=== PATIENT | female | born 2000 | race Caucasian/White ===

== ENCOUNTER 2021-01-13 20:30 | Emergency (ER) | payer BC, OTHER, SELFPAY ==
--- NOTE | ~2021-01-13 | CT_ITS ---
EXAMINATION: CT abdomen pelvis wo con DATE: 01/13/2021 21:54 INDICATION: Right flank pain and hematuria TECHNIQUE: Computed tomography (CT) of the abdomen and pelvis was performed without intravenous contr ast. Automated exposure control and iterative reconstruction technique were employed. The dose-length product was 192.83 mGy-cm. COMPARISON: None FINDINGS: Lung bases are clear. Heart size is normal. No pericardial or pleural effusion. Liver, gallbladder, s pleen, pancreas and bilateral adrenal glands are normal. Kidneys are normal with no evident nephrolit hiasis or hydronephrosis. There are several calcifications in the pelvis which appear remote from the expected course of ureters which are difficult to distinguish due to the paucity of intra-abdominal fat which most likely represent phleboliths. Bladder anteverted uterus are normal. Bowels including t he appendix are normal. No free intraperitoneal gas or fluid. No pathologically enlarged abdominal or pelvic lymphadenopathy. Bones are unremarkable. IMPRESSION: 1. A few small calcifications in the pelvis which given location are more likely to represent phlebol iths than ureteral stones although the ureters are not able to be definitively localized in the pelvi s. No nephrolithiasis or hydronephrosis. Reviewed, dictated and finalized at location A. IMPRESSION: 1. A few small calcifications in the pelvis which given location are more likel y to represent phleboliths than ureteral stones although the ureters are not ab le to be definitively localized in the pelvis. No nephrolithiasis or hydronephr osis.
[2021-01-13 20:50] VITALS: BP 127/70; PULSE 87; RESP 20; TEMP 36.7
--- NOTE | 2021-01-13 21:09 | ED.GENADULT ---
HPI - General Adult General Chief complaint: Urogenital-Female Stated complaint: R side pain Source: patient Mode of arrival: ambulatory Limitations: no limitations History of Present Illness HPI narrative: Cm is a 20F with a PMH of back surgery that presented to the ED with right flank pain. She has had flank pain off and on for the last week. It comes and goes but it can be quite excruciating. It is better with ibuprofen and sitting but worse with standing. No dysuria, hematuria, nausea, vomiting, fevers, chills or trauma to the area. Related Data Allergies Allergy/AdvReac Type Severity Reaction Status Date / Time No Known Allergies Allergy Verified 11/06/20 10:43 Review of Systems Constitutional: Constitutional: Reports no additional constitutional complaints, Denies chills, Denies fatigue and Denies fever(s) Eyes: Eyes: Reports no additional eye complaints ENT: Reports system reviewed and no additional complaints, except as documented Cardiovascular: Cardiovascular: Reports no additional cardiovascular complaints Respiratory: Respiratory: Reports no additional respiratory complaints Gastrointestinal: Gastrointestinal: Reports no additional gastrointestinal complaints Genitourinary: Genitourinary: Reports as per HPI Musculoskeletal: Musculoskeletal: Reports as per HPI Integumentary/Breasts: Skin/Breast: Reports system reviewed and no additional complaints, except as docu Neurologic: Reports system reviewed and no additional complaints, except as documented Psychiatric: Psychiatric: Reports no additional psychiatric complaints Endocrine: Endocrine: Reports no additional endocrine complaints Hematologic/Lymphatic: Hematologic/Lymphatic: Reports no additional hematologic/lymphatic complaints Allergic/Immunologic: Allergic/Immunologic: Reports no additional allergic/immunologic complaints [facility] Past Medical History Medical History Allergies Anemia Anxiety Migraines Surgical History Surgical History History of back surgery [place] teeth extracted Family History Family History Father Diabetes mellitus Depression Hypertension Social History Social History Smoking status: Never smoker Alcohol intake: current Substance use: never Exam Const: General: no acute distress Orientation/consciousness: patient oriented x3 HENMT: Head: normal to inspection Other: atraumatic Eyes: Conjunctivae: conjunctivae normal Pupils: Equal, round and reactive pupils present Neck: Neck: normal visual inspection Chest: Chest palpation & inspection: normal inspection of the chest Resp: Effort & Inspection: normal respiratory effort Cardio: Rate: regular rate GI: Inspection: non-distended GI Palp: Yes Soft to palpation, No Tenderness to palpation present (GI), No Guarding due to palpation present (GI) and No Rigid due to palpation : General: Yes no CVA tenderness Skin: General skin exam: normal color Rashes: no rashes Neuro: General: patient oriented x3 and moves all extremities Extrem: General: normal to inspection Psych: Appearance: grossly normal Mental Status: mental status grossly normal Thought content: Yes Normal thought content present Course Course Emergency Course: EXAMINATION: CT abdomen pelvis wo con DATE: 01/13/2021 21:54 INDICATION: Right flank pain and hematuria TECHNIQUE: Computed tomography (CT) of the abdomen and pelvis was performed without intravenous contrast. Automated exposure control and iterative reconstruction technique were employed. The dose-length product was 192.83 mGy-cm. COMPARISON: None FINDINGS: Lung bases are clear. Heart size is normal. No pericardial or pleural effusion. Liver, gallbladder, spleen, pancreas and bilatera
[2021-01-13 21:16] LABS: Appearance Urine Clear (Clear); Bilirubin Urine Negative (Negative); Blood Urine 2+ (Negative); Glucose Urine UA Negative (Negative); Ketones Urine Negative (Negative); Leukocyte Esterase Ur Negative (Negative); Nitrate Urine Negative (Negative); Protein Urine Negative (Negative); Specific Grav Ur 1.015 (1.010-1.020); Urobilinogen Urine 0.2 mg/dL (0.2-1.0); pH Urine 6.5 (5.0-8.0)
[2021-01-13 21:26] LABS: Add Urine Microscopic? YES; Color Urine Light Yellow (Yellow); RBC Urine 21-50 /hpf (0-2); WBC Urine 0-3 /hpf (0-3)
[2021-01-13 21:27] LABS: Bacteria Urine Trace /hpf; Pregnancy On Board Control Positive; Urine Pregnancy Test Negative
[2021-01-13 22:40] VITALS: BP 124/72; PULSE 79; RESP 20; TEMP 36.7; O2SAT 97
== END 2021-01-13 23:00 | disposition home or self-care (01) ==
PROVIDERS: Emergency Provider Family Medicine
DX: R10.9 Unspecified abdominal pain (principal)
CPT/HCPCS: 74176; 81001; 81025; 99282; 99284

== ENCOUNTER 2021-10-10 13:42 | Emergency (ER) | payer BC, OTHER, SELFPAY ==
--- NOTE | ~2021-10-10 | CT_ITS ---
EXAMINATION: CT abdomen pelvis w con DATE: 10/10/2021 15:16 INDICATION: Right lateral abdominal pain, intermittent. TECHNIQUE: Computed tomography (CT) of the abdomen and pelvis was performed with 100 cc Omnipaque 350 intravenous contrast. The dose-length product was 342.47 mGy-cm. Automated exposure control and iter ative reconstruction technique were employed. COMPARISON: CT dated 01/13/2021 FINDINGS: Lung bases unremarkable. Heart size normal. No significant pleural or pericardial effusion. The liver, spleen, pancreas, adrenal glands and kidneys are unremarkable. Gallbladder is present. No significant vascular abnormality. No lymphadenopathy. Bladder is unremarkable. No free air or free f luid. No acute osseous abnormality. IMPRESSION: 1. No acute abdominal abnormality. Reviewed, dictated and finalized at location A. [facility]
--- NOTE | ~2021-10-10 | XR_ITS ---
EXAMINATION: XR chest 1V 10/10/2021 15:17 INDICATION: Upper abdominal and chest pain PROCEDURE: PA upright chest COMPARISON: No prior studies for comparison. FINDINGS: The lungs are clear. The cardiomediastinal silhouette is within normal limits. There are no pleural effusions. There is no pneumothorax suspected. IMPRESSION: 1: NO ACUTE CARDIOPULMONARY DISEASE. Reviewed, dictated and finalized at location A. IFIED PEDIATRIC NURSE PRACTITIONER
[2021-10-10 13:44] VITALS: BP 118/76; PULSE 80; RESP 16; TEMP 36.1; O2SAT 100
[2021-10-10] MEDS: SODIUM CHLORIDE 0.9% IV 1,000 ML 999 ML IV CONT (14:31)
[2021-10-10 14:40] LABS: Basophils Absolute Auto 0.1 K/mm3 (0.0-0.1); Basophils Percent Auto 0.9 % (0.2-1.2); Eosinophils Absolute Auto 0.2 K/mm3 (0-0.3); Eosinophils Percent Auto 2.7 % (0-4.4); Hematocrit 40.6 % (37.0-47.0); Hemoglobin 13.8 g/dL (12.0-15.0); Immature Granulocyte Absolute 0.01 K/mm3 (0.00-0.031); Immature Granulocyte Percent A 0.1 % (0-0.5); Lymphocytes Absolute Auto 2.59 K/mm3 (0.9-3.2); Lymphocytes Percent Auto 34.6 % (18.3-44.2); Mean Corpuscular Volume 94.2 fl (80-100); Mean Platelet Volume 9.4 fl (7.4-10.4); Monocytes Absolute Auto 0.7 K/mm3 (0.1-0.6); Monocytes Percent Auto 8.8 % (2.6-8.5); Neutrophils Percent Auto 52.9 % (45.5-73.1); Platelet Count Result 311 k/mm3 (150-375); Red Blood Count 4.31 M/mm3 (4.2-5.4); Red Cell Distribution Width 11.8 % (11.5-14.5); White Blood Count 7.5 K/mm3 (4.5-10.0)
[2021-10-10 14:49] LABS: Alanine Aminotransferase 15 U/L (4-35); Albumin Level 4.4 g/dL (3.5-5.1); Alkaline Phosphatase 50 U/L (38-126); Anion Gap 6 mmol/L (8-16); Aspartate Amino Transferase 35 U/L (14-36); Bilirubin,Total 0.4 mg/dL (0.2-1.3); Blood Urea Nitrogen 20 mg/dL (7-17); Calcium 9.3 mg/dL (8.4-10.2); Carbon Dioxide 30 mmol/L (22-30); Chloride 105 mmol/L (98-107); Estimated CRCL calculation 64 ml/min; Estimated Glomerular Filt Rate > 60; Glucose 102 mg/dL (65-110); Lipase 108 U/L (23-300); Potassium 3.9 mmol/L (3.4-5.0); Sodium 141 mmol/L (137-145)
[2021-10-10 14:59] LABS: Add Urine Microscopic? YES; Appearance Urine Cloudy (Clear); Bilirubin Urine Negative (Negative); Blood Urine 2+ (Negative); Color Urine Yellow (Yellow); Glucose Urine UA Negative (Negative); Ketones Urine Negative (Negative); Leukocyte Esterase Ur Trace LEU/UL (Negative); Nitrate Urine Negative (Negative); Protein Urine Negative (Negative); RBC Urine >75 /hpf (0-2); Specific Grav Ur 1.025 (1.001-1.035); Squamous Epithelial Cell Urine Rare /hpf (Few); Urobilinogen Urine Negative mg/dL (<2.0); WBC Urine 0-3 /hpf
--- NOTE | 2021-10-10 15:04 | ED.ABDPAIN ---
HPI - Abdominal Pain General Chief Complaint: Abdominal Pain Stated Complaint: right side pain Time Seen by Provider: 10/10/21 13:52 Source: patient Mode of arrival: ambulatory Limitations: no limitations History of Present Illness HPI narrative: Patient is 21 years old white female presents with intermittent sharp stabbing pain at the right upper quadrant right lower ribs for 1 week. Worse with standing and walking, better laying down still. Patient denies any fever, chills, nausea, vomiting, urinary symptoms, vaginal bleeding or discharge. Patient works as a tmd teacher, right-handed. Patient denies smoking or using drugs, drinks occasionally. Patient does not take medicine at home, healthy otherwise. Related Data Allergies Allergy/AdvReac Type Severity Reaction Status Date / Time No Known Allergies Allergy Verified 11/06/20 10:43 Review of Systems Review of Systems: CONSTITUTIONAL: Denies fever, chills, or sweats. EYES: Denies visual changes, redness, or discharge. ENT: Denies rhinorrhea, congestion, sore throat, or otalgia. CARDIOVASCULAR: Denies chest pain, palpitations, or edema. RESPIRATORY: Denies cough or dyspnea. GASTROINTESTINAL: Denies abdominal pain, nausea, vomiting, or diarrhea. GENITOURINARY: Denies dysuria or hematuria. SKIN: Denies rash or itching. MUSCULOSKELETAL: Denies back pain, joint pain, or myalgia. NEUROLOGIC: Denies headache, numbness, or weakness. PSYCHIATRIC: Denies anxiety or depression. [facility] Past Medical History Medical History Allergies Anemia Anxiety Migraines Surgical History Surgical History History of back surgery [place] teeth extracted Family History Family History Father Diabetes mellitus Depression Hypertension Social History Social History Smoking status: Never smoker Alcohol intake: current Substance use: never Exam Narrative: General appearance: Well-developed, well-nourished Skin: Normal color Head: Normocephalic, nontraumatic Eyes: Clear conjunctiva ENT: Oropharynx normal, ears normal, nose normal Neck: Supple, nontender Chest and respiratory: Airway patent, no respiratory distress, no accessory muscle use Heart: Regular rate/rhythm Abdomen: Soft, nontender, no organomegaly, quiet bowel sounds Vascular: Normal peripheral pulses, normal capillary refill. Musculoskeletal: Normal range of motion, nontender back Neurologic: Alert and oriented ?3, FELTING MACHINE OPERATOR is normal as tested, no gross motor deficit Course Course Emergency Course: Stable Patient presents with intermittent pain at the right upper quadrant right lower ribs worse with movement, better laying still. Patient works as a tmd teacher, right-handed, muscular strain/sprain could be a possibility. Work-up today showed no findings to explain patient presentation. Tylenol, ibuprofen as needed recommended Vital Signs Vital signs: Vital Signs Temperature 36.1 C L 10/10/21 13:44 Pulse Rate 80 10/10/21 13:44 Respiratory Rate 16 10/10/21 13:44 Blood Pressure 118/76 10/10/21 13:44 Pulse Oximetry 100 10/10/21 13:44 Temperature 36.1 C L 10/10/21 13:44 Pulse Rate 80 10/10/21 13:44 Respiratory Rate 16 10/10/21 13:44 Blood Pressure 118/76 10/10/21 13:44 Pulse Oximetry 100 10/10/21 13:44 MDM - Abdominal Pain Lab Data Result diagrams: 10/10/21 14:31 10/10/21 14:31 Labs: Lab Results 10/10/21 10/10/21 10/10/21 Range/Units 14:29 14:31 14:31 WBC 7.5 (4.5-1
[2021-10-10 15:44] VITALS: BP 128/66; PULSE 74; RESP 16; O2SAT 99
--- NOTE | 2021-10-15 08:34 | PC.NURSE ---
LATE ENTRY This note is being entered to document information to the patient's record. The following information was omitted on [10/10/21], by [Shalini REILLY Stop time for NS was 1530, 10ooml infused].
== END 2021-10-10 16:00 | disposition home or self-care (01) ==
PROVIDERS: Emergency Provider Emergency Medicine
DX: R10.11 Right upper quadrant pain (principal); Z86.2 Personal history of diseases of the blood and blood-forming organs and certain disorders involving the immune mechanism
CPT/HCPCS: 36415; 71045; 74177; 80053; 81001; 81025; 83690; 85025; 96360; 99284; J7030; Q9967

== ENCOUNTER 2021-12-30 14:05 | Outpatient (CLI) | payer BC, OTHER, SELFPAY ==
[2021-12-30 15:20] LABS: HIV 1/2 Ab P24 Ag Result Negative (Negative)
[2021-12-30 18:03] LABS: Hepatitis B Surface Antigen Negative (Negative)
[2021-12-30 18:20] LABS: Hepatitis C Virus Antibody Negative (Negative)
[2021-12-31 06:39] LABS: Rapid Plasma Reagin Non-Reactive (NonReactive)
== END 2021-12-30 14:06 | disposition home or self-care (01) ==
PROVIDERS: Visit Provider Obstetrics & Gynecology
DX: Z20.2 Contact with and (suspected) exposure to infections with a predominantly sexual mode of transmission (principal)
CPT/HCPCS: 36415; 86592; 86703; 86803; 87340; G0432

== ENCOUNTER 2024-11-10 08:04 | Emergency (ER) | payer BC, SELFPAY ==
--- NOTE | ~2024-11-10 | XR_ITS ---
XR hand RT min 3V Ordering provider: Felicita Casper NP History: . hit hand on wooden box at gym pain swelling attn: RT index . Comparison: None. FINDINGS: BONES: No acute fracture or dislocation. JOINT SPACES: Normal. SOFT TISSUES: Normal. IMPRESSION: No acute osseous abnormality right hand. Reviewed, dictated and finalized at location A.
--- OUTSIDE RECORDS SUMMARY | 2024-11-10 08:06 | XMS_ITS | Referral Summary ---
Author Organization [facility] Address [address] [place] [address] Care Team Providers Care Sheet Metal Duct Installer Helper Name Role Phone No, Physician Primary Care Provider [phone] Allergies No known active allergies Medications fexofenadine (ULISES) 60 mg tablet Take 1 tablet (60 mg total) by mouth daily Active fluticasone propionate (FLONASE) 50 mcg/actuation nasal spray Administer 1 spray into each nostril daily Active benzonatate (TESSALON) 200 mg capsuleIndicati ons:Nasopharyng itis acute Take 1 capsule (200 mg total) by mouth 3 (three) times a day as needed for cough 30 capsule 3 Active Additional Information Patient not taking.Reported on 07/07/2023 phentermine (ADIPEX-P) 37.5 mg tablet TAKE 1 TABLET 30 MINUTES BEFORE FIRST MEAL ORALLY ONCE A DAY 30 DAYS 3 Active Active Problems Problem Noted Date Diagnosed Date Allergic rhinitis 06/22/2020 Assessment & Plan (06/22/2020 4:50 PM PUBLIC POLICY PROFESSOR): Will monitor throat, Avoid tonsillectomy until absolutely necessary Continue warm salt water gargles or mouthwash gargles to prevent tonsil stone from reforming Will obtain allergy testing from [place] Continue Ulises Continue the increased fluid intake Arthralgia of ankle 08/02/2011 Patellofemoral pain syndrome 04/12/2011 Stress fracture 11/30/2010 Lumbago 10/19/2010 Social History Tobacco Use Types Packs/Day Years Used Date Smoking Tobacco: Never Smokeless Tobacco: Never Alcohol Use Standard Drinks/Week Comments Not Currently 0 (1 standard drink = 0.6 oz pur e alcohol) Personal Safety Answer Date Recorded Getting School Help Needed Not on file 10/06 Comments Unknown Sex and Gender Information Value Date Recorded Sex Assigned at Not on file Legal Sex Female 3:31 AM PUBLIC POLICY PROFESSOR Gender Identity Female 11/06/2023 9:59 AM CDT Sexual Orientation Not on file Last Filed Vital Signs Vital Sign Reading Time Taken Comments Blood Pressure 122/80 11/05/2023 2:01 PM CDT Pulse 72 11/05/2023 2:01 PM CDT Temperature 36.9 C (98.5 F) 11/05/2023 2:01 PM CDT Respiratory Rate 20 11/05/2023 2:01 PM CDT Oxygen Saturation 100% 11/05/2023 2:01 PM CDT Inhaled Oxygen Concentration - - Weight 68.5 kg (151 lb) 11/05/2023 2:01 PM CDT Height 160 cm (5' 3 ) 11/05/2023 2:01 PM CDT Body Mass Index 26.75 11/05/2023 2:01 PM CDT Plan of Treatment Not on file Insurance IDPA [employer] ACCESS CHOICE IDPA IDPA Care Teams Sheet Metal Duct Installer Helper Relationship Specialty Start Date End Date No, Physician PCP - General 06/22/20
--- OUTSIDE RECORDS SUMMARY | 2024-11-10 08:06 | XMS_ITS | Clinical Summary ---
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): Will monitor throat, Avoid tonsillectomy until absolutely necessary Continue warm salt water gargles or mouthwash gargles to prevent tonsil stone from reforming Will obtain allergy testing from [place] Continue Ulises Continue the increased fluid intake [...] on file Legal Sex Female 3:31 AM DYE REEL OPERATOR Gender Identity Female 11/06/2023 9:59 AM CDT Sexual Orientation Not on file Obstetrics History Last Filed Vital Signs Vital Sign Reading [...] 11/05/2023 2:01 PM CDT Plan of Treatment Health Maintenance Due Date Last Done Comments Cervical Cancer Screening 1998 Depression Screening 1998 Hepatitis C Screening 1998 DTaP/Tdap/Td Vaccine (1 - Tdap) 2009 Varicella Vaccines (1 of 2 - 13+ 2-dose series) 2011 HPV Vaccines (1 - 3-dose series) 2013 Hepatitis B Screening 2016 Regular Well Visit/Exam 18-64 2016 Influenza Vaccine (Season Ended) 2025 08/25/2022, 06/10/2020, 05/28/2019, Additional history exists Pneumococcal vaccine <65 Aged Out No longer eligible based on patient's age to complete this topic Insurance IDPA [employer] (Formerly [employer]) CHOICE IDPA IDPA Care Teams Application Software Developer Relationship Specialty Start Date End Date No, Physician PCP - General 06/22/20
--- OUTSIDE RECORDS SUMMARY | 2024-11-10 08:06 | XMS_ITS | Patient Health Record ---
Author Organization [facility] Address [address] [place] [address] [address] [place] [address] Care Team Providers Care Puppet Maker Name Role Phone Kelly Hand Primary Care Provider Pearl Huggins Unavailable [phone] Yusef Roland Unavailable [phone] Meghan Paniagua Unavailable [phone] Erin Chao Unavailable [phone] Allergies No Known Allergies Results Component Value Reference Range Notes *Vitamin D, 25-Hydroxy (0819 [id number]) Reviewed date:05/22/2024 12:59:26 PM Interpretation:Normal Performing Lab:[facility] [place], [address] [place] [id number], Phone - [phone], Director - Joycelyn Notes/Report: Clinical Information:SRC:Blood Vitamin D, 25-Hydroxy 48.9 30.0-100.0 ng/mL Vitamin D deficiency has been defined by the [place] of Medicine and an Endocrine Society practice guideline as a level of serum 25-OH vitamin D less than 20 ng/mL (1,2). The Endocrine Society went on to further define vitamin D insufficiency as a level between 21 and 29 ng/mL (2). 1. IOM ([place] of Medicine). 2010. Dietary reference intakes for calcium and D. [place]: The National Academies Press. 2. Chinyere MF, Barbie NC, Bob CLEMENTS, et al. Evaluation, treatment, and prevention of vitamin D deficiency: an Endocrine Society clinical practice guideline. JCEM. 2010; 96(7):1911-30. *CBC With Differential/Plate let ([id number]) Reviewed date:03/14/2024 05:28:37 PM Interpretation: Performing Lab:[facility] [address] [id number], Phone - [phone], [facility]/Report: WBC 6.6 3.4-10.8 x10E3/uL RBC 4.57 3.77-5.28 x10E6/uL Hemoglobin 14.4 11.1-15.9 g/dL Hematocrit 43.6 34.0-46.6 % MCV 95 79-97 fL MCH 31.5 26.6-33.0 pg MCHC 33.0 31.5-35.7 g/dL RDW 11.6 11.7-15.4 % Platelets 298 150-450 x10E3/uL Neutrophils 62 Not Estab. % Lymphs 27 Not Estab. % Monocytes 7 Not Estab. % Eos 3 Not Estab. % Basos 1 Not Estab. % Neutrophils (Absolute) 4.2 1.4-7.0 x10E3/uL Lymphs (Absolute) 1.8 0.7-3.1 x10E3/uL Monocytes(Absolute) 0.5 0.1-0.9 x10E3/uL Eos (Absolute) 0.2 0.0-0.4 x10E3/uL Baso (Absolute) 0.0 0.0-0.2 x10E3/uL Immature Granulocytes 0 Not Estab. % Immature Grans (Abs) 0.0 0.0-0.1 x10E3/uL *Comp. Metabolic Panel (14) ([id number]) Reviewed date:03/14/2024 05:28:37 PM Interpretation: Performing Lab:[facility] [address] [id number], Phone - [phone], [facility]Report: Glucose 82 70-99 mg/dL BUN 14 6-20 mg/dL Creatinine 0.89 0.57-1.00 mg/dL eGFR 92 >59 mL/min/1.73 BUN/Creatinine Ratio 16 9-23 Sodium 139 134-144 mmol/L Potassium 4.5 3.5-5.2 mmol/L Chloride 100 96-106 mmol/L Carbon Dioxide, Total 26 20-29 mmol/L Calcium 9.7 8.7-10.2 mg/dL Protein, Total 6.8 6.0-8.5 g/dL Albumin 4.2 4.0-5.0 g/dL Globulin, Total 2.6 1.5-4.5 g/dL Bilirubin, Total 0.3 0.0-1.2 mg/dL Alkaline Phosphatase 47 44-121 IU/L AST (SGOT) 23 0-40 IU/L ALT (SGPT) 12 0-32 IU/L [facility] ([id number]) Reviewed date:06/12/2024 02:58:12 PM Interpretation:Normal Performing Lab: Notes/Report: Glucose 85 70-99 mg/dL Hemoglobin A1c 5.1 4.8-5.6 % BUN 13 6-20 mg/dL Creatinine 0.93 0.57-1.00 mg/dL eGFR 87 >59 mL/min/1.73 BUN/Creatinine Ratio 14 9-23 Sodium 138 134-144 mmol/L Potassium 4.5 3.5-5.2 mmol/L Chloride 102 96-106 mmol/L Carbon Dioxide, Total 24 20-29 mmol/L Calcium 9.8 8.7-10.2 mg/dL Protein, Total 7.2 6.0-8.5 g/dL Albumin 4.5 4.0-5.0 g/dL Globulin, Total 2.7 1.5-4.5 g/dL Bilirubin, Total 0.7 0.0-1.2 mg/dL Alkaline Phosphatase 50 44-121 IU/L AST (SGOT) 19 0-40 IU/L ALT (SGPT) 13 0-32 IU/L Cholesterol, Total 182 100-199 mg/dL Triglycerides 37 0-149 mg/dL HDL Cholesterol 76 >39 mg/dL VLDL Cholesterol Kamar 8 5-40 mg/dL LDL Chol Calc ([facility]) 98 0-99 mg/dL T. Chol/HDL Ratio 2.4 0.0-4.4 ratio Estimated CHD Risk < 0.5 0.0-1.0 times avg. TSH 1.750 0.450-4.500 uIU/mL WBC 5.3 3.4-10.8 x10E3/uL RBC 4.53 3.77-5.28 x10E6/uL Hemoglobin 14.2 11.1-15.9 g/dL Hematocrit 44.3 34.0-46.6 % MCV 98 79-97 fL MCH 31.3 26.6-33.0 pg MCHC 32.1 31.5-35.7 g/dL RDW 11.9 11.7-15.4 % Platelets 284 150-450 x10E3/uL Neutrophils 53 Not Estab. % Lymphs 33 Not Estab. % Monocytes 8 Not Estab. % Eos 5 Not Estab. % Basos 1 Not Estab. % Neutrophils (Absolute) 2.8 1.4-7.0 x10E3/uL Lymphs (Absolute) 1.8 0.7-3.1 x10E3/uL Monocytes(Absolute) 0.5 0.1-0.9 x10E3/uL Eos (Absolute) 0.3 0.0-0.4 x10E3/uL Baso (Absolute) 0.1 0.0-0.2 x10E3/uL Immature Granulocytes 0 Not Estab. % Immature Grans (Abs) 0.0 0.0-0.1 x10E3/uL Reason For Referral Reason counseling Diagnosis 1 Anxiety (F41.9) Referral Organization [facility] Referring Provider First Name Kelly Referring Provider Last Name Yazan Referring Provider Speciality [facility] gloria Referred Provider Specialty Behavioral [facility] General Notes Erin Chao 024 02:02:34 PM >EVENT PRODUCER called and left a message, Erin Chao 05/15/2024 09:49:17 AM >EVENT PRODUCER spoke with pt and scheduled appt Referral Priority Routine Medications Medication SIG (Take, Route, Frequency, Duration) Notes Start Date End Date Status Fluticasone Propionate 50 MCG/ACT 1 spray in each nostril Nasally Once a day 05/03/2022 Active Montelukast Sodium 10 mg 1 tablet by aga th every evening. Active Hydrocortisone 2.5 % 1 application Externally 3 times a day and decrease as heals for 14 days 04/25/2024 Active Methylphenidate HCl ER (OSM) 36 MG 1 tablet in the morning Orally Once a day for 30 days 10/31/2024 11/30/2024 Active FLUoxetine HCl 10 MG 1 capsule Orally On ce a day for 30 days 05/15/2024 Active Fexofenadine HCl 180 MG 1 tablet Orally Once a day 01/22/2024 Active Immunizations Vaccine Route Administration Date Status Comme nts Influenza, Quadrivalent, Pres Free (Flucelvax) IM Intramuscular 08/25/2022 Administered Social History Tobacco Use: Social History Observation Description Date Details (start date - stop date) Never Smoker NA - NA Tobacco Use/Smoking Status: Question Answer Notes Are you a nonsmoker Tobacco Control Question Answer Notes Tobacco use: Nonsmoker Problems Problem Type SNOMED Code ICD Code Onset Dates Problem Status W/U Status Risk Notes Problem 63218138 Anxiety (F41.9) Active confirmed Problem 03842252 Stress (F43.9) Active confirmed Problem 51609512 Non-seasonal allergic rhinitis due to pollen (J30.1) Active confirmed Problem 056909489 Attention deficit disorder (ADD) in adult (F98.8) Active confirmed Problem 018869519 Seasonal depression (F33.8) Active confirmed Vital Signs Heart Rate 70 /min 09/12/2024 Temperature 97.2 degrees Fahrenheit 09/12/2024 Respiratory Rate 16 /min 09/12/2024 Height-cm 161.29 cm 09/12/2024 Oximetry 98 % 09/12/2024 Blood pressure diastolic 73 mm Hg 09/12/2024 Weight-kg 72.48 kg 09/12/2024 Height 63.5 in 09/12/2024 Blood pressure systolic 111 mm Hg 09/12/2024 Weight 159.8 lbs 09/12/2024 BMI 27.86 kg/m2 09/12/2024 Encounters Encounter Location Date Provider Diagnosis Joan Becerra [address] [address] 05/15/2024 Kelly Clicktreepreier Encounter for screening Z13.9 Joan Becerra [address] [facility] [address] [place] [address] 01/22/2024 Kelly Clicktreenmeier Physical exam Z00.00 ; Attention deficit disorder (ADD) in adult F98.8 ; Need for malaria prophylaxis Z29.89 ; Seasonal depression F33.8 and Non-seasonal allergic rhinitis due to pollen J30.1 Joan Becerra [address] [facility] [address] [place] [address] 03/13/2024 Kelly Clicktreenmeier Attention deficit disorder (ADD) in adult F98.8 ; Anxiety F41.9 ; Overweight (BMI 25.0-29.9) E66.3 ; Medication monitoring encounter Z51.81 and Non-seasonal allergic rhinitis due to pollen J30.1 Joan Becerra [address] [facility] [address] [place] [address] 04/25/2024 Kelly Mergenmeier Attention deficit disorder (ADD) in adult F98.8 ; Tinea pedis, left B35.3 ; Stress F43.9 and Anxiety F41.9 Joan Becerra [address] [facility] [place] [address] 05/15/2024 Kelly Mergenmeier Attention deficit disorder (ADD) in adult F98.8 and Labile mood R45.86 [address] [place] [address] 05/23/2024 Chao Attention deficit disorder (ADD) in adult F98.8 [place] [address] [place], [place] [address] [place] [address] [place] [address] 06/03/2024 Chao Anxiety F41.9 Joan Becerra [address] [facility] [address] [place] [address] 06/13/2024 Kelly Mergenmeier Attention deficit disorder (ADD) in adult F98.8 and Anxiety F41.9 [place] [address] [place], [place] [address] [place] [address] [place] [address] 06/18/2024 Chao Anxiety F41.9 [place] [address] [place] [address] 07/02/2024 Chao Anxiety F41.9 [place] [address] [place] [address] 07/23/2024 Chao Anxiety F41.9 [place] [address] [place] [address] 08/06/2024 Chao Stress F43.9 [place] [address] [place] [address] 09/03/2024 Chao Anxiety F41.9 Joan Becerra [address] [address] 09/12/2024 Kelly Mergenmeier Attention deficit disorder (ADD) in adult F98.8 ; Non-seasonal allergic rhinitis due to pollen J30.1 and Stress F43.9 [place] [address] [place] [address] 09/18/2024 Chao Anxiety F41.9 [place] [address] [place] [address] 10/02/2024 Chao Stress F43.9 [place] [address] [place] [address] 10/16/2024 Chao Anxiety F41.9 [place] [address] [place] [address] 11/05/2024 Chao Anxiety F41.9 [facility] [address] [place] [address] 03/13/2024 Kelly Mergenmeier [facility] [address] [address] 04/15/2024 Kelly Mergenmeier [facility] [address] [address] 04/17/2024 Kelly Mergenmeier Attention deficit disorder (ADD) in adult F98.8 [facility] [address] [address] [place] [address] 05/07/2024 Kelly Mergenmeier [facility] [address] [address] 07/17/2024 Kelly Mergenmeier Attention deficit disorder (ADD) in adult F98.8 [facility] [address] [place] [address] [place] [address] 08/09/2024 Meghan Holden Anxiety F41.9 [facility] [address] [place] [address] [place] [address] 08/27/2024 Meghan Holden Attention deficit disorder (ADD) in adult F98.8 [place] [address] [place] [address] [place] [address] 08/27/2024 Meghanluis alfredo Diope Attention deficit disorder (ADD) in adult F98.8 [place] [address] [address] [place] [address] 08/27/2024 Kelly Mergenmeier Joan Becerra [address] [place] [address] [place] [address] 08/30/2024 Kelly Mergenmeier Attention deficit disorder (ADD) in adult F98.[address] [place] [address] [place] [address] 08/30/2024 Yusef Roland Attention deficit disorder (ADD) in adult F98.8 [place] [address] [address] [place] [address] 09/05/2024 Meghan Holden Anxiety F41.9 Joan Becerra [address] [place] [address] [place] [address] 09/30/2024 Kelly Mergenmeier Attention deficit disorder (ADD) in adult F98.8 [facility] [address] [place] [address] [place] [address] 10/11/2024 Meghan Holden Anxiety F41.9 [facility] [address] [place] [address] [place] [address] 10/29/2024 Pearl Huggins Attention deficit disorder (ADD) in adult F98.8 Assessments Encounter Date Diagnosis (ICD Code) Assessment Notes Treatment Notes Treatment Clinical Notes Section Notes 05/15/2024 Encounter for screening (ICD-10 - Z13.9) 01/22/2024 Physical exam (ICD-10 - Z00.00) 01/22/2024 Attention deficit disorder (ADD) in adult (ICD-10 - F98.8) 03/13/2024 Anxiety (ICD-10 - F41.9) Pt is continuing with therapist. 03/13/2024 Attention deficit disorder (ADD) in adult (ICD-10 - F98.8) 04/25/2024 Attention deficit disorder (ADD) in adult (ICD-10 - F98.8) Well controlled on medication. 04/25/2024 Tinea pedis, left (ICD-10 - B35.3) Add OTC antifungal daily. 05/15/2024 Attention deficit disorder (ADD) in adult (ICD-10 - F98.8) Will keep at same dose for now and see how affected by SSRI. 05/15/2024 Labile mood (ICD-10 - R45.86) Discussed SSRI extensively. Counseled on use and goals as well as ways to engage fiance to help make changes and avoid binge eating. Encouraged to do 4 minute workout daily. 05/23/2024 Attention deficit disorder (ADD) in adult (ICD-10 - F98.8) 06/03/2024 Anxiety (ICD-10 - F41.9) 06/13/2024 Anxiety (ICD-10 - F41.9) Will update address once she moves and will send through [facility] 06/13/2024 Attention deficit disorder (ADD) in adult (ICD-10 - F98.8) 06/18/2024 Anxiety (ICD-10 - F41.9) 07/02/2024 Anxiety (ICD-10 - F41.9) 07/23/2024 Anxiety (ICD-10 - F41.9) 08/06/2024 Stress (ICD-10 - F43.9) 09/03/2024 Anxiety (ICD-10 - F41.9) 09/12/2024 Non-seasonal allergic rhinitis due to pollen (ICD-10 - J30.1) 09/12/2024 Attention deficit disorder (ADD) in adult (ICD-10 - F98.8) 09/18/2024 Anxiety (ICD-10 - F41.9) 10/02/2024 Stress (ICD-10 - F43.9) 10/16/2024 Anxiety (ICD-10 - F41.9) 11/05/2024 Anxiety (ICD-10 - F41.9) 04/17/2024 Attention deficit disorder (ADD) in adult (ICD-10 - F98.8) 07/17/2024 Attention deficit disorder (ADD) in adult (ICD-10 - F98.8) 08/09/2024 Anxiety (ICD-10 - F41.9) 08/27/2024 Attention deficit disorder (ADD) in adult (ICD-10 - F98.8) 08/27/2024 Attention deficit disorder (ADD) in adult (ICD-10 - F98.8) 08/30/2024 Attention deficit disorder (ADD) in adult (ICD-10 - F98.8) 08/30/2024 Attention deficit disorder (ADD) in adult (ICD-10 - F98.8) 09/05/2024 Anxiety (ICD-10 - F41.9) 09/30/2024 Attention deficit disorder (ADD) in adult (ICD-10 - F98.8) 10/11/2024 Anxiety (ICD-10 - F41.9) 10/29/2024 Attention deficit disorder (ADD) in adult (ICD-10 - F98.8) 03/13/2024 Overweight (BMI 25.0-29.9) (ICD-10 - E66.3) Has goals of weight loss over the next year for her wedding. 04/25/2024 Stress (ICD-10 - F43.9) Mostly having positive stressors but discussed that happy changes are also stressful. Pt has benefited from life coaching/counse mariah. Will refer to [facility] counselor and requires minimal intensity. Discussed that [facility] also has resources to utilize for navigating upcoming changes. 09/12/2024 Stress (ICD-10 - F43.9) 03/13/2024 Medication monitoring encounter (ICD-10 - Z51.81) 04/25/2024 Anxiety (ICD-10 - F41.9) 01/22/2024 Need for malaria prophylaxis (ICD-10 - Z29.89) 03/13/2024 Non-seasonal allergic rhinitis due to pollen (ICD-10 - J30.1) 01/22/2024 Seasonal depression (ICD-10 - F33.8) 01/22/2024 Non-seasonal allergic rhinitis due to pollen (ICD-10 - J30.1) Plan Of Treatment Pending Test Test Name Order Date PHA ([id number]) 05/03/2022 PHA ([id number]) 05/19/2023 Next Appt Details Provider Name:Elyssa Martinez 11/19/2024 08:00:00 AM, [address], [place], [address], Insurance Providers Payer Name Payer Address Payer Phone Subscriber Number Group Number Insured Name Patient Relationship to Insured Coverage Start Date Coverage End Date [facility] ([facility]) [address] [place] [address] [phone] [id number] Cm Ospina Self - patient is the insured 4 [facility] [address] [place] [address] [id number] Cm Ospina Self - patient is the insured 2 4 [facility] Cm Ospina Self - patient is the insured 2 4 [facility] ([facility]) [address] [place] [address] [id number] Cm Ospina Self - patient is the insured 2 2 Medical (General) History Medical History History ICD Code Allergies Anemia Anxiety Depression Surgical History Surgery Date(Month/Year) [facility] Teeth Surgery 2019 Back Surgery 2017
--- OUTSIDE RECORDS SUMMARY | 2024-11-10 08:06 | XMS_ITS ---
Author Organization [facility] Address [address] [facility] [address] [place] [address] Care Team Providers Care Turbo Generator Oiler Name Role Phone Kelly Hand Primary Care Provider Pearl Huggins Unavailable [phone] Erin Chao Unavailable [phone] REASON FOR VISIT f/u Encounters Encounter Location Date Provider Diagnosis [address] [place], [place] [address] [place] [address] 10/17/2024 Erin Chao Plan Of Treatment Next Appt Details Provider Name:Erin Chao, 0 11/19/2024 08:00:00 AM, [address], [place], [address], Progress Notes * Cm GARZA RDOB:[birth year] (24 yo F)Acc No.[id number]:10/17/2024 Mental Health - Follow-Up (V ideo) Patient: Cm VIVEROS Provider: Radha Chao :2000 A ge:24 Y S ex:Female Date:10/17/2024 External Visit ID:[id number] Address:[address] [place], [place] [id number] Pcp:Kelly Hand Subjective: * Chief Complaints: * 1 . F/u. * Active Problem List J30.1 Non-seasonal allergi c rhinitis due to pollen Modified On:05/03/2022W/U Status:confirmed F41.9 Anxiety Modified On:12/29/2022W/U Status:confirmed F33.8 Seasonal depression Modified On:10/02/2023/U Status:confirmed F98.8 Attention deficit di sorder (ADD) in adult Modified On:10/31/2023/U Status:confirmed F43.9 Stress Modified On:04/25/2024/U Status:confirmed * Medical History: Objective: Assessment: Plan: * Treatment: * Care Plan Details* * Electronic signature of Erin Chao LCSW on 11/10/2024 at 08:06 AM CDT Sign off status: Pending * Provider: Radha Chao Date: 0 10/17/2024 Generated for Dewayne obrien/Earl/Esau on: 0 11/10/2024 08:06 AM CDT
--- OUTSIDE RECORDS SUMMARY | 2024-11-10 08:06 | XMS_ITS | Clinical Summary ---
Author Organization [facility] Address [address] [facility], [place] [address] Phone Care Team Providers Care Privacy Analyst Name Role Phone Yazan Nolan Radha DPM Unavailable [phone] Maurice Hancock MD Primary Care Provider [phone] Allergies No known active allergies Medications LO LOESTRIN FE 1 MG-10 MCG / 10 MCG Tablet TK 1 T PO D 7 8 Active dicyclomine (BENTYL) 20 MG Tablet 8 Active famotidine (PEPCID) 40 MG Tablet TK 1 T PO QD 0 8 Active ondansetron (ZOFRAN-ODT) 4 MG TABLET DISPERSIBLE TK 1 T PO Q 8 HOURS PRF NAUSEA OR VOMITING 0 8 Active CARAFATE 1 GM/10ML Suspension TK 10ML PO BID BEFORE MEALS 0 8 Active omeprazole (PRILOSEC) 20 MG CAPSULE DELAYED RELEASE Take 1 Cap by mouth daily. 90 Cap 3 8 Active hyoscyamine (LEVSIN SL) 0.125 MG SL Tablet 1 Tab by Sublingual route every 4 hours as needed for Cramping. 60 Tab 1 8 Active Family History Medical History Relation Name Comments No Known Problems Father PUD No Known Problems Mother Relation Name Status Comments Father Alive Mother Alive Social History Tobacco Use Types Packs/Day Years Used Date Smoking Tobacco: Never Smokeless Tobacco: Never Alcohol Use Standard Drinks/Week Comments No 0 (1 standard drink = 0.6 oz pur e alcohol) Comments No Sex and Gender Information Value Date Recorded Sex Assigned at Not on file Legal Sex Female 10:08 PM CDT Gender Identity Not on file Sexual Orientation Not on file Occupation Industry Job Start Date Job End Date student Not on file Not on file Not on file Last Filed Vital Signs Vital Sign Reading Time Taken Comments Blood Pressure 116/68 01/25/2018 7:56 AM CDT Pulse 56 01/25/2018 7:56 AM CDT Temperature 37 C (98.6 F) 01/25/2018 7:56 AM CDT Respiratory Rate 20 01/25/2018 7:56 AM CDT Oxygen Saturation 98% 01/25/2018 7:56 AM CDT Inhaled Oxygen Concentration - - Weight 60.4 kg (133 lb 3.2 oz) 01/25/2018 7:56 A M CDT Height 161.3 cm (5' 3.5 ) 01/25/2018 7:56 AM CDT Body Mass Index 23.23 01/25/2018 7:56 AM CDT Plan of Treatment Health Maintenance Due Date Last Done Comments Hepatitis C Virus (HCV) Screening 2000 TdaP Immunization 2000 Human Papillomavirus (HPV) Immunization (1 - 3-dose series) 2013 Hepatitis B Immunization (1 of 3 - 19+ 3-dose series) 2017 Influenza Immunization (#1) 2024 SARS-COV-2 Immunization ( season) 2024 10/31/2020, 10/04/2020 Respiratory Syncytial Virus (RSV) Immunization (Adult) (1 - 1-dose 75+ series) 2073 Meningococcal Immunization (ACWY) Aged Out No longer eligible b ased on patient's age to complete this topic Pneumococcal Immunization Combined Aged Out No longer eligible b ased on patient's age to complete this topic Rotavirus Immunization Aged Out No lo nger eligible based on patient's age to complete this topic Insurance MEDICAID AETNA [facility] Care Teams Privacy Analyst Relationship Specialty Start Date End Date Maurice Hancock MD [address] [place] [address] PCP - General Family Medicine 01/11/18 Yazan Nolan DPM Consulting Physician Podiatry 12/08/15
--- OUTSIDE RECORDS SUMMARY | 2024-11-10 08:06 | XMS_ITS | Clinical Summary ---
Author Organization [facility] Address Counts include 234 beds at the [facility] [place] [address] Care Team Providers Care Food Preparer Name Role Phone Unavailable Primary Care Provider Unavailabl e Social History Tobacco Use Types Packs/Day Years Used Date Smoking Tobacco: Never Assessed Comments Unknown Sex and Gender Information Value Date Recorded Sex Assigned at Not on file Legal Sex Female 5:51 PM UNIT MANAGER Gender Identity Not on file Sexual Orientation Not on file Plan of Treatment Health Maintenance Due Date Last Done Comments Cervical Cancer Screening Pa p Smear (Age 21 to 29) Every 3 Years 2000 Cervical Cancer Screening 1998 Annual Physical 2001 HPV Vaccines (1 - 3-dose series) 2013 Hepatitis C 2016 DTaP, Tdap and Td Vaccines ( 1 - Tdap) 2017 Hepatitis B Vaccines (1 of 3 - 19+ 3-dose series) 2017 COVID-19 Vaccine (2023-2 5 season) 2024 Meningococcal B Vaccine Aged Out No l onger eligible based on patient's age to complete this topic Meningococcal Vaccine Aged Out No cyndee jefry eligible based on patient's age to complete this topic Pneumococcal Vaccine: Pediat rics (0 to 5 Years) and At-Risk Patients (6 to 64 Years) Aged Out No longer eligible b ased on patient's age to complete this topic RSV Immunizations Under 20 Months Aged Out No longer eligible based on patient's age to complete this topic
--- OUTSIDE RECORDS SUMMARY | 2024-11-10 08:07 | XMS_ITS ---
Author Organization [facility] Address [address] [place] [address] Care Team Providers Care Eligibility Services Representative Name Role Phone Kelly Hand Primary Care Provider Pearl Huggins [phone] Medications Medication SIG (Take, Route, Frequency, Duration) Notes Start Date End Date Status Methylphenidate HCl ER (OSM) 36 MG 1 tablet in the morning Orally Once a day for 30 days 10/31/2024 11/30/2024 Active Encounters Encounter Location Date Provider Diagnosis [facility] [address] [place] [address] 10/29/2024 Pearl Huggins Attention deficit disorder (ADD) in adult F98.8 Assessments Encounter Date Diagnosis (ICD Code) Assessment Notes Treatment Notes Treatment Clinical Notes Section Notes 10/29/2024 Attention deficit disorder (ADD) in adult (ICD-10 - F98.8) Plan Of Treatment Medication Medication Name Sig Start Date Stop Date Notes Methylphenidate HCl ER (OSM) 36 MG 1 tablet in the morning Orally Once a day for 30 days 10/31/2024 11/30/2024 Next Appt Details Provider Name:Elyssa Martinez 11/19/2024 08:00:00 AM, [address], [place], [address], Progress Notes * Cm GARZA RDOB:[birth year] (24 yo F)Acc No.[id number]:10/29/2024 Patient: Ceasar Cm RAJAN :2000 A ge:24 Y S ex:Female Address:[address] [place] [address] * Refills Refill Methylphenidate HCl ER (OSM) Tablet Extended Release, 36 MG, Orally, 30 Tablet, 1 tablet in the morning, Once a day, 30 days, Refills=0 * true * Date: Generated for Dewayne obrien/Earl/Longitting on: 0 11/10/2024 08:06 AM CDT
--- OUTSIDE RECORDS SUMMARY | 2024-11-10 08:07 | XMS_ITS ---
Author Organization [facility] Address [facility] [place] [address] [address] [place] [address] Care Team Providers Care Shackler Name Role Phone Kelly Hand Primary Care Provider Pearl Huggins Unavailable [phone] Erin Chao Unavailable [phone] REASON FOR VISIT f/u Medications Medication SIG (Take, Route, Frequency, Duration) Notes Start Date End Date Status Fluticasone Propionate 50 MCG/ACT 1 spray in each nostril Nasally Once a day 05/03/2022 Active Montelukast Sodium 10 mg 1 tablet by aga every evening. Active Hydrocortisone 2.5 % 1 [...] tablet Orally Once a day 01/22/2024 Active Encounters Encounter Location Date Provider Diagnosis [facility] [place], [place] [address] [place] [address] 11/05/2024 Erin Chao Anxiety F41.9 Assessments Encounter Date Diagnosis (ICD Code) Assessment Notes Treatment Notes Treatment Clinical Notes Section Notes 11/05/2024 Anxiety (ICD-10 - F41.9) Plan Of Treatment Next Appt Details Follow Up: 2 Weeks, Reason: f/u Provider Name:Elyssa Martinez 11/19/2024 08:00:00 AM, [address], [place], [address], Progress Notes * Cm GARZA RDOB:[birth year] (24 yo F)Acc No.[id number]:11/05/2024 Mental Health - Follow-Up (V ideo) Patient: Cm VIVEROS Provider: Radha Chao :2000 A ge:24 Y S ex:Female Date:11/05/2024 External Visit ID:[id number] Address:[address] [place] [address], [place] [address] Pcp:Kelly Hand Check Out:09:18 AM [employer] Subjective: * Chief Complaints: * F /u * HPI: M ental Health: Behavior Darryl menon fully engaged in session, Alert and oriented x4, Cl did not express symptoms of SI/HI/AVH, CI met with the [facility] to address current personal challenges. Mood/Affect A ppropriate. Thought Process N ormal thought process. Interventions C ognitive Behavior Therapy (CBT). Appearance A ppropriately groomed. Response Darryl menon reported she started a fitness and healthy eating routine. She is 9 days in and has already lost 5lbs and says she feels less bloated and more clear headed. She has stopped drinking. This will last 75 days and client is determined to make it through. Client talked about her discappointment in some of her friends for not going to her bachelorette [place] in [place]. We talked about reasons people might be unable to go. Client said she is hurt but she understands. She is proud of herself because ehas been able to set boundaries after deciding she needed to limit her social activities due to exhaustion. . Progress/Barriers: Darryl menon made progress today in session by processing her feelings. Plan N ext session, MHP plans to address anxiety. * Medical History: * Surgical History: * Hospitalization/Major Diagno stic Procedure: * Medications: T akingHydrocortisone 2.5 % Cream 1 application Externally 3 times a day and decrease as heals Montelukast Sodium 10 mg Tablet 1 tablet by mouth every evening. Fluticasone Propionate 50 MCG/ACT Suspension 1 spray in each nostril Nasally Once a day Fexofenadine HCl 180 MG Tablet 1 tablet Orally Once a day FLUoxetine HCl 10 MG Capsule 1 capsule Orally Once a day Methylphenidate HCl ER (OSM) 36 MG Tablet Extended Release 1 tablet in the morning Orally Once a day , stop date 11/30/2024Taking Hydrocortisone 2.5 % Cream 1 application Externally 3 times a day and decrease as heals Taking Montelukast Sodium 10 mg Tablet 1 tablet by mouth every evening. Taking Fluticasone Propionate 50 MCG/ACT Suspension 1 spray in each nostril Nasally Once a day Taking Fexofenadine HCl 180 MG Tablet 1 tablet Orally Once a day Taking FLUoxetine HCl 10 MG Capsule 1 capsule Orally Once a day Taking Methylphenidate HCl ER (OSM) 36 MG Tablet Extended Release 1 tablet in the morning Orally Once a day , stop date 11/30/2024 Objective: Assessment: * Assessment: 1. A nxiety - F41.9 (Primary) Plan: * Treatment: * Procedure Codes: * Follow Up: 2 Weeks (Reason: f/u) * Care Plan Details* * Sign off status: Completed true * Provider: Radha Chao Date: 0 11/05/2024 Generated for Dewayne Krause on: 11/10/2024 08:06 AM CDT History and Physical Notes * HPI (History of Present Illness) Category Sub-Category Detail Notes Category Not es Mental Health Mood/Affect Appropriate Thought Process Normal thought proce ss Interventions Cognitive Behavior T herapy (CBT) Appearance Appropriately groome d Response Client reported she started a fitness and healthy eating routine. She is 9 days in and has already lost 5lbs and says she feels less bloated and more clear headed. She has stopped drinking. This will last 75 days and client is determined to make it through. Client talked about her discappointment in some of her friends for not going to her bachelorette libertarian in [place]. We talked about reasons people might be unable to go. Client said she is hurt but she understands. She is proud of herself because ehas been able to set boundaries after deciding she needed to limit her social activities due to exhaustion. Behavior Client fully engaged in session, Alert and oriented x4, Cl did not express symptoms of SI/HI/AVH, CI met with the [facility] to address current personal challenges Progress/Barriers: Client made progress today in session by processing her feelings Plan Next session, MHP pl ans to address anxiety
--- OUTSIDE RECORDS SUMMARY | 2024-11-10 08:07 | XMS_ITS | Patient Health Record ---
Author Organization [facility] Address [address] [place] [address] Care Team Providers Care Tax Adjuster Name Role Phone Maurice Hancock Primary Care Provider UnavailGregory Bajwa Unavailable [phone] [facility], Provider Unavailable Unavailab le Allergies No Known Allergies Reason For Referral No Information Medications Medication SIG (Take, Route, Frequency, Duration) Notes Start Date End Date Status MUCINEX 600 mg 1 tab(s) orally every 12 hours Not-Taking Flonase Allergy Relief 50 MCG/ACT 2 spray(s) in each nostril BID Active NASACORT ALLERGY 24HR 55 mcg/inh 2 spray(s) intranasally once a day for 30 day(s) Not-Taking Auvi-Q 0.3 MG/0.3ML as directed intramuscularly once for 30 days Active FAMOTIDINE 40 mg 1 tab(s) orally 30 mins prior to SCIT for 30 days Active SIT (TRADITIONAL) VARIABLE PER SCHEDULE SC PER SCHEDULE for TO BE DETERMINED *Please review for potential replacement for e-prescription and drug interaction check* 10/05/2021 Active Nasacort Allergy 24HR 55 MCG/ACT 2 spray(s) intranasally once a day for 30 day(s) Not-Taking FEXOFENADINE HYDROCHLORIDE 180 mg 1 tab(s) orally once a day for 30 day(s) Active Mucinex 600 MG 1 tab(s) orally every 12 hours Not-Taking FLONASE 50 mcg/inh 2 spray(s) in each nostril BID Active Montelukast Sodium 10 MG 1 tab(s) orally once a day for 30 day(s) Active NASAL WASHES N/A DIRECTED INTRANASALLY NEEDED for 30 *Please review for potential replacement for e-prescription and drug interaction check* Active Fexofenadine HCl 180 MG 1 tab(s) orally once a day for 30 day(s) Active AUVI -Q 0.3 mg as directed intramuscularly once for 30 days Active OLOPATADINE NASAL 665 MCG/INH 2 SPRAY(S) INTRANASALLY 2 TIMES A DAY for 30 DAY(S) *Please review for potential replacement for e-prescription and drug interaction check* Active Famotidine 40 MG 1 tab(s) orally 30 mins prior to SCIT for 30 days Active MONTELUKAST 10 mg 1 tab(s) orally once a day for 30 day(s) Active Social History Tobacco Use: Social History Observation Description Date Details (start date - stop date) Never Smoker NA - NA Smoking Smart Form: Question Answer Notes Are you a: never smoker Problems Problem Type SNOMED Code ICD Code Onset Dates Problem Status W/U Status Risk Notes Problem Chronic allergic conjunctivitis (06067096) Other chronic allergic conjunctivitis (H10.45) Active confirmed Problem Allergic rhinitis caused by pollen (disorder) (45897814) Allergic rhinitis due to pollen (J30.1) Active confirmed Problem Allergic rhinitis caused by animal hair and dander (469104687106182) Allergic rhinitis due to animal (cat) (dog) hair and dander (J30.81) Active confirmed Problem Allergic rhinitis (49763982) Other allergic rhinitis (J30.89) Active confirmed Problem Allergic rhinitis caused by pollen (disorder) (73445550) Allergic rhinitis due to pollen (J30.1) Active confirmed Problem Allergic rhinitis caused by animal hair and dander (591708831781827) Allergic rhinitis due to animal (cat) (dog) hair and dander (J30.81) Active confirmed Problem Allergic rhinitis (38422040) Other allergic rhinitis (J30.89) Active confirmed Problem Chronic allergic conjunctivitis (23263212) Other chronic allergic conjunctivitis (H10.45) Active confirmed Encounters Encounter Location Date Provider Diagnosis [facility] [place] [place] [address] 01/20/2024 Provider [facility] Plan Of Treatment No Information Insurance Providers Payer Name Payer Address Payer Phone Subscriber Number Group Number Insured Name Patient Relationship to Insured Coverage Start Date Coverage End Date [employer] [address] [address] [place], [place] [id number] Cm Ospina Self - patient is the insured Medical (General) History Medical History History ICD Code Allergic rhinitis due to pollen J30.1 Allergic rhinitis due to animal (cat) (d og) hair and dander J30.81 Other allergic rhinitis J30.89 Other chronic allergic conjunctivitis H1 0.45 Surgical History Surgery Date(Month/Year) Back surgery 03/06/2018
--- OUTSIDE RECORDS SUMMARY | 2024-11-10 08:07 | XMS_ITS ---
Author Organization [facility] Address [address] [place] [address] Care Team Providers Care Dish Machine Operator Name Role Phone Maurice Hancock Primary Care Provider UnavailGregory Bajwa Unavailable [phone] [facility], Provider Unavailable Unavailab le [facility]IT [facility] Conversion Encounter Medications Medication SIG (Take, Route, Frequency, Duration) Notes Start Date End Date Status Nasacort Allergy 24HR 55 MCG/ACT 2 spray(s) intranasally once a day for 30 day(s) Not-Taking Mucinex 600 MG 1 tab(s) orally ever y 12 hours Not-Taking NASAL WASHES N/A DIRECTED INTRANASALLY NEEDED for 30 *Please review for potential replacement for e-prescription and drug interaction check* Active Fexofenadine HCl 180 MG 1 tab(s) orally once a day for 30 day(s) Active Famotidine 40 MG 1 tab(s) orally 30 mins prior to SCIT for 30 days Active Flonase Allergy Relief 50 MCG/ACT 2 spray(s) in each nostril BID Active Auvi-Q 0.3 MG/0.3ML as directed intramuscularly once for 30 days Active SIT (TRADITIONAL) VARIABLE PER SCHEDULE SC PER SCHEDULE for TO BE DETERMINED *Please review for potential replacement for e-prescription and drug interaction check* 10/05/2021 Active Montelukast Sodium 10 MG 1 tab(s) orally once a day for 30 day(s) Active OLOPATADINE NASAL 665 MCG/INH 2 SPRAY(S) INTRANASALLY 2 TIMES A DAY for 30 DAY(S) *Please review for potential replacement for e-prescription and drug interaction check* Active Encounters Encounter Location Date Provider Diagnosis [facility] - [address] [address] 01/20/2024 Provider LYSSA-Mónica Plan Of Treatment No Information Progress Notes * Cm GARZADOB: [birth year] (24 yo F)Acc No.[id number]:01/20/2024 Patient: Cm VIVEROS Provider: Saniya Sales :2000 A ge:23 Y S ex:Female Date:01/20/2024 Address:[address] [place], [place] [id number] Pcp:Maurice Hancock Subjective: * Chief Complaints: * 1 . [facility] To [facility] Conversion Encounter. * Medical History: * Medications: T aking NASAL WASHES N/A 1 QUART OF STERILIZED TAP WATER OR DISTILLED WATER, 1 TSP NACL, 1 PINCH OF BAKING SODA DIRECTED INTRANASALLY NEEDED , Notes to Pharmacist: *Please review for potential replacement for e-prescription and drug interaction check*, Taking Montelukast Sodium 10 MG Tablet 1 tab(s) orally once a day , Taking Auvi-Q 0.3 MG/0.3ML Solution Auto-injector as directed intramuscularly once , Taking Flonase Allergy Relief 50 MCG/ACT Suspension 2 spray(s) in each nostril BID , Taking SIT (TRADITIONAL) VARIABLE SEE RECORD PER SCHEDULE SC PER SCHEDULE , Notes to Pharmacist: *Please review for potential replacement for e-prescription and drug interaction check*, Taking OLOPATADINE NASAL 665 MCG/INH SPRAY 2 SPRAY(S) INTRANASALLY 2 TIMES A DAY , Notes to Pharmacist: *Please review for potential replacement for e-prescription and drug interaction check*, Taking Fexofenadine HCl 180 MG Tablet 1 tab(s) orally once a day , Taking Famotidine 40 MG Tablet 1 tab(s) orally 30 mins prior to SCIT , Not-Taking/PRN Mucinex 600 MG Tablet Extended Release 12 Hour 1 tab(s) orally every 12 hours , Not-Taking/PRN Nasacort Allergy 24HR 55 MCG/ACT Aerosol 2 spray(s) intranasally once a day Objective: * Vitals: Assessment: Plan: * Treatment: * Billing Information: * Visit Code: * Procedure Codes: * Electronic signature of Prov liamr [facility]Migration on 11/10/2024 at 08:06 AM CDT Sign off status: Pending * Provider: Saniya ayers Migration Date: 0 01/20/2024 Generated for Dewayne obrien/Earl/Esau on: 0 11/10/2024 08:06 AM CDT
--- OUTSIDE RECORDS SUMMARY | 2024-11-10 08:07 | XMS_ITS | Clinical Summary ---
Author Organization [facility] Address [address] [place] [address] Care Team Providers Care Career Services Manager Name Role Phone Unavailable Primary Care Provider Unavailabl e Source Comments [facility],non-owned Affiliates and Associated Physician Practices is amultiple site organization consisting of ambulatory clinics and hospital sitesin [place], [place], [place] and [place]. This disclosure is being madepursuant to the Care Everywhere program and may not contain all information available regarding this patient. Last updated 18.[facility] Allergies No known active allergies Medications * Be aware that medications may not be up to date on this document. Alwaysverify current medications with the patient. Medication Sig Dispensed Refills Start Date End Date Status Norethin-Eth Estrad-Fe Biphas (LO LOESTRIN FE PO) Active Social History Tobacco Use Types Packs/Day Years Used Date Smoking Tobacco: Never Assessed Sex and Gender Information Value Date Recorded Sex Assigned at Not on file Gender Identity Not on file Sexual Orientation Not on file Last Filed Vital Signs Vital Sign Reading Time Taken Comments Blood Pressure 112/68 03/12/2020 10:56 AM CDT Pulse 78 03/12/2020 10:56 AM CDT Temperature 36.8 C (98.3 F) 03/12/2020 10:56 AM CDT Respiratory Rate 16 03/12/2020 10:56 AM CDT Oxygen Saturation 98% 03/12/2020 10:56 AM CDT Inhaled Oxygen Concentration - - Weight 63.5 kg (140 lb) 03/12/2020 10:56 AM CDT Height 160 cm (5' 3 ) 03/12/2020 10:56 AM CDT Body Mass Index 24.8 03/12/2020 10:56 AM CDT Plan of Treatment Health Maintenance Due Date Last Done Comments PAP SMEAR 2000 HIV SCREENING 2013 HPV VACCINE (1 - 3-dose series) 2013 HEPATITIS C SCREENING 03/03/2016 DTAP/TDAP/TD VACCINES (1 - Tdap) 2017 HEPATITIS B VACCINE (1 of 3 - 19+ 3-dose series) 2017 COVID-19 VACCINE (1 - 2023-2 5 season) 2024 INFLUENZA VACCINE (#1) 2024 DEPRESSION SCREENING 08/07/2024 ZOSTER VACCINE (1 of 2) 2048 HIB VACCINE Aged Out No longer eligi ble based on patient's age to complete this topic MENINGOCOCCAL (Group B) VACC INE SHARED DECISION-MAKING Aged Out No longer eligibl e based on patient's age to complete this topic MENINGOCOCCAL GROUPS A/C/Y/W VACCINE Aged Out No longer eligible b ased on patient's age to complete this topic PNEUMOCOCCAL VACCINE Aged Out No long er eligible based on patient's age to complete this topic
[2024-11-10 08:12] VITALS: BP 132/80; PULSE 82; RESP 20; TEMP 36.8; O2SAT 100
--- NOTE | 2024-11-10 08:15 | ED.UPPEXIN ---
HPI - Extremity Injury (Upper) General Chief Complaint: Extremity Injury, Upper Stated Complaint: Finger Injury Source: patient, RN notes reviewed and old records reviewed Mode of arrival: ambulatory Limitations: no limitations History of Present Illness HPI narrative: 24-year-old female presents to [facility] with complaints of injury to her right hand specifically smacked her right index finger on wooden box at the gym yesterday morning around 0800. Patient reports she has been using ice and has taken ibuprofen for her discomfort. Patient reports if she tries to move her right index finger pain is 7/10 and throbbing less pain at rest but pain remains to be throbbing.Patient has noted swelling to her right index finger and dorsal aspect of her hand adjacent to index finger. MD complaint: injury to: right and hand (specifically right index finger) Onset (ago): day(s) (yesterday morning at 0800) Other injuries: none Handedness: right Place: other (at gym) Severity scale (1-10): 7 Treatments prior to arrival: cold therapy and NSAIDS Related Data Home Medications ?Medication ?Instructions ?Recorded ?Confirmed ?Last Taken ?Type levonorgestrel 14 mcg/24 hr (up to 1 device intrauterine ONCE 04/18/23 04/30/24 Unknown History 3 yrs) 13.5 mg intrauterine device (Gisell) methylphenidate HCl 20 mg tablet 20 mg PO DAILY 04/30/24 04/30/24 Unknown History fluoxetine 10 mg capsule mg 11/10/24 Unknown History Allergies Allergy/AdvReac Type Severity Reaction Status Date / Time No Known Allergies Allergy Verified 04/30/24 08:42 Review of Systems Review of Systems: CONSTITUTIONAL: Denies fever, chills, or sweats. EYES: Denies visual changes, redness, or discharge. ENT: Denies rhinorrhea, congestion, sore throat, or otalgia. CARDIOVASCULAR: Denies chest pain, palpitations, or edema. RESPIRATORY: Denies cough or dyspnea. GASTROINTESTINAL: Denies abdominal pain, nausea, vomiting, or diarrhea. GENITOURINARY: Denies dysuria or hematuria. SKIN: Denies rash or itching. MUSCULOSKELETAL: Denies back pain,positive for pain to her right index finger and tissue of dorsal hand with swelling noted, or myalgia. NEUROLOGIC: Denies headache, numbness, or weakness. PSYCHIATRIC: Reports history of anxiety or depression. All systems reviewed & are unremarkable except as noted in HPI and below PMFSH Past Medical History Medical History Allergies Anemia Anxiety Encounter for IUD insertion Migraines Surgical History Surgical History History of back surgery [place] teeth extracted Family History Family History Father Diabetes mellitus Depression Hypertension Social History Social History Smoking status: Never smoker Alcohol intake: current Substance use: never Lack of Transportation: No Lack of Food: Never True Current Housing: I Have Housing Concerned About Future Housing: No Difficulty Paying Gas/Electric Bills: No Difficulty Paying for Meds: No Currently Unemployed: No Education: Bachelor's Degree Difficulty w/ Childcare or Family Care: No Living arrangements: with family Additional living arrangements comments: Lives with Boyfriend Occupation/Education: occupation Gender identity (if verbalized by the patient): Female Sexual Orientation (if Verbalized by the Patient): Straight or Heterosexual Spiritual care concerns: No Comments At time of signature, agree with nursing past medical, surgical, social and family history. There is no relevant family history pertinent to the presenting complaint Exam Narrative: GENERAL: Well-appearing, well-nourished, and in no acute distress. HEAD: Normocephalic, atraumatic. EYES: PERRLA and EOMI. ENT: Nares clear, no rhinorrhea or epistaxis. Mucous membranes moist. NECK: Supple.no lymphadenopathy CHEST: Clear to auscultation. No respiratory distress. no cough or tachypnea SAO2 100% on room air HEART: Regular rate and rhythm. No murmur heard. Normal peripheral pulses. ABDOMEN: Soft, nontender, nondistended, normal active bowel sounds. EXTREMITIES: Normal range of motion. No edema.Exception noted to swelling to right index finger with some bruising and to the dorsal area of right hand adjacent to index finger, right index finger nail bed has brisk capillary refill, strong right radial pulse SKIN: Warm, dry, no rash. NEURO: No focal deficits. Alert and oriented x3. Course Course Emergency Course: Patient is aware of diagnosis, understands and agrees to treatment plan.? Anticipatory guidance given.? Patient agrees to follow-up as directed and is aware of reasons to seek care at the emergency department. Portions of this record may have been created with voice recognition software Level of Care: [facility] Visit Vital Signs Vital signs: Vital Signs Temperature 36.8 C 11/10/24 08:12 Pulse Rate 82 11/10/24 08:12 Respiratory Rate 20 11/10/24 08:12 Blood Pressure 132/80 11/10/24 08:12 Pulse Oximetry 100 11/10/24 08:12 Oxygen Delivery Room Air 11/10/24 08:12 Temperature 36.8 C 11/10/24 08:12 Pulse Rate 82 11/10/24 08:12 Respiratory Rate 20 11/10/24 08:12 Blood Pressure 132/80 11/10/24 08:12 Pulse Oximetry 100 11/10/24 08:12 Oxygen Delivery Room Air 11/10/24 08:12 Reviewed MDM - Extremity Injury (Upper) Differential Diagnosis Differential diagnosis: Likely finger sprain and other (right index finger fracture , right hand fracture) Medical Records Attestation: I reviewed the patient's medical records. Imaging Data Attestation: I personally reviewed and interpreted this imaging study as follows: My impression: no acute osseous abnormality of right hand no fracture or dislocation Radiologist's impression: [facility] [place] [id number] XRay Report Signed Patient: Cm Fournier : 2000 MR#: [id number] Age: 24 Acct:[id number] Loc: [facility] ADM Date: 11/10/24Attending Dr: Ordering Physician: Felicita Casper APRN Date of Service: 11/10/24 Procedure(s): XR hand RT min 3V Accession Number(s): [id number] cc: Felicita Casper APRN~ XR hand RT min 3V Ordering provider: Felicita Casper NP History: . hit hand on wooden box at gym pain swelling attn: RT index . Comparison: None. FINDINGS: BONES: No acute fracture or dislocation. JOINT SPACES: Normal. SOFT TISSUES: Normal. IMPRESSION: No acute osseous abnormality right hand. Reviewed, dictated and finalized at location A. Please be advised this is a medical document. It is intended for [id number] communication. It is written in medical language and may contain unfamiliar abbreviations or verbiage. Medical documents are intended to carry relevant information, facts as evident, and the clinical opinion of the practitioner at the time of the encounter. This report may have been done utilizing a voice recognition system. Attempts have been made to correct errors. However, there may be uncorrected grammatical, spelling, and recognition errors present. The file time of this note does not necessarily represent the time of service. Dictated By: Jeff Burch MD 11/10/24 0837 Signed By: <Electronically signed by Jeff Burch MD in OV> Critical Care Time Critical Care Time Critical Care Time: No Discharge Plan Discharge Clinical Impression: Contusion of right index finger Qualifiers: Encounter type: initial encounter Damage to nail status: without damage Qualified Code(s): S60.021A - Contusion of right index finger without damage to nail, initial encounter Patient Disposition: Home, Self-Care Condition: Stable Instructions: Antibiotic Form, Contusion in Adults (ED) Additional Instructions: Move right index finger frequently Tylenol for lesser pain Ibuprofen regularly for the next 2-3 days for the inflammation recommend 400 to 600 mg three times daily with food Follow-up with orthopedic surgeon or hand surgeon if any further concerns Follow-up with PCP if further problems or concerns Ice to the area 20-30 minutes 4-6 times a day Elevate above heart If your symptoms persist, change or worsen significantly before you can contact your personal physician then please, without delay, go to the emergency department for further evaluation. Follow-up with PCP in 7-10 days or sooner if needed Follow up with PCP soon in regards to your blood pressure which is elevated above threshold for referral. Blood pressure above 120/80 may indicate pre-hypertension. 132/80 Patient Language: [place] Prescriptions: No Action fluoxetine 10 mg capsule Gisell 14 mcg/24 hrs (3 yrs) 13.5 mg intrauterine device 1 device intrauterine ONCE Rx Instructions: 06/27/22 methylphenidate HCl 20 mg tablet 20 mg PO DAILY Follow-up/Referrals: PHYSICIAN NOT ON STAFF,NONSTAFF [Primary Care Provider] - Time of Disposition: 08:53 Quality Ora Coma Scale Eyes: Open Verbal: Oriented and Alert Motor: Follows Commands Ora Coma Total Score: 15
== END 2024-11-10 08:59 | disposition home or self-care (01) ==
PROVIDERS: Emergency Provider Registered Nurse
DX: S60.021A Contusion of right index finger without damage to nail, initial encounter (principal); W22.8XXA Striking against or struck by other objects, initial encounter
CPT/HCPCS: 73130; 99213; G0463